=== PATIENT | male | born 1950 | race Hispanic/Latino ===

== ENCOUNTER 2019-02-26 11:04 | Emergency (ER) | payer BC, OTHER ==
--- NOTE | 2019-02-26 11:17 | Event Note ---
ED Screening Note Date of service: 02/26/19 Time: 11:13 ED Screening Note: This is a 68 y.o. M. that presents to the ER with chills, dehydration, and hematuria from PCP Dr. Gonzalez office. This initial assessment/diagnostic orders/clinical plan/treatment(s) is/are subject to change based on patients health status, clinical progression and re- assessment by fellow clinical providers in the ED. Further treatment and workup at subsequent clinical providers discretion. Patient/guardian urged not to elope from the ED as their condition may be serious if not clinically assessed and managed. Initial orders include: Labs
[2019-02-26 11:42] LABS: Basophils % (Auto) 0.3 % (0.0-1.8); Eosinophils % (Auto) 0.1 % (0.0-4.3); Hematocrit 47.8 % (35.5-45.6); Lymphocytes # (Auto) 1.3 K/mm3 (1.2-5.4); Lymphocytes % (Auto) 9.6 % (13.4-35.0); Mean Corpuscular HGB Conc 34 % (32-34); Mean Corpuscular Volume 95 fl (84-94); Monocytes # (Auto) 1.5 K/mm3 (0.0-0.8); Monocytes % (Auto) 11.2 % (0.0-7.3); Platelet Count 157 K/mm3 (140-440); Red Blood Count 5.04 M/mm3 (3.65-5.03); Red Cell Distribution Width 15.7 % (13.2-15.2)
[2019-02-26 11:47] VITALS: BP 144/81
[2019-02-26] MEDS ORDERED: NACL 0.9% 1000 ML 1,000 ML IV ONE ×2 (11:50→12:48)
--- NOTE | 2019-02-26 11:50 | Emergency Department Report ---
ED Male HPI - General Chief complaint: Urogenital-Male Stated complaint: DOCTOR REFERRAL Time Seen by Provider: 02/26/19 11:13 Source: patient Mode of arrival: Ambulatory Limitations: No Limitations - History of Present Illness Initial comments: Patient is 68 years old male with history of benign prostatic hypertrophy. Patient was sent from Dr. Bundy office for evaluation of urinary frequency, dysuria and hematuria. Patient stated that symptoms started 3 days ago. Patient denied any fever or chills. Patient also denying any flank pain. Pat ient also denied any nausea or vomiting. MD Complaint: dysuria -: days(s) - Related Data Home Medications Medication Instructions Recorded Confirmed Last Taken Dutasteride (Nf) [Avodart (Nf)] 1 cap PO DAILY 09/10/14 09/10/14 09/09/14 21:00 Esomeprazole Magnesium [NexIUM] 1 cap PO DAILY 09/10/14 09/10/14 09/09/14 21:00 Sertraline HCl 1 tab PO DAILY 09/10/14 09/10/14 09/09/14 21:00 Tamsulosin HCl 1 cap PO DAILY 09/10/14 09/10/14 09/09/14 21:00 Previous Rx's Medication Instructions Recorded Last Taken Type Ciprofloxacin HCl [Ciprofloxacin 500 mg PO Q12HR #20 tab 02/26/19 Unknown Rx TAB] Sulfamethoxazole/Trimethoprim 1 each PO BID #14 tablet 02/26/19 Unknown Rx [Bactrim DS TAB] Allergies Allergy/AdvReac Type Severity Reaction Status Date / Time shellfish derived Allergy Severe Swelling Verified 09/10/14 12:12 aspirin Allergy Swelling Verified 09/05/14 10:22 cephalexin [From Keflex] Allergy Swelling Verified 02/26/19 11:06 ibuprofen [From Advil] Allergy Swelling Verified 09/05/14 10:22 penicillin G Allergy Swelling Verified 09/05/14 10:23 ED Review of Systems ROS: Stated complaint: DOCTOR REFERRAL Other details as noted in HPI Comment: All other systems reviewed and negative Constitutional: denies: chills, fever Respiratory: denies: cough, shortness of breath, SOB with exertion Cardiovascular: denies: chest pain, palpitations Gastrointestinal: denies: abdominal pain, nausea, vomiting Genitourinary: dysuria, frequency, hematuria. denies: discharge, testicular pain, testicular mass Musculoskeletal: denies: back pain Neurological: denies: headache, weakness, numbness, paresthesias, confusion ED Past Medical Hx - Past Medical History Previous Medical History?: Yes Hx Hypertension: No Hx Heart Attack/AMI: (had negative stress test for abnormal EKG) Hx GERD: Yes - Surgical History Past Surgical History?: Yes Hx Pacemaker: No Hx Internal Defibrillator: No Additional Surgical History: hydrocele. left knee surgery- [facility] - Social History Smoking Status: Never Smoker Substance Use Type: None - Medications Home Medications: Home Medications Medication Instructions Recorded Confirmed Last Taken Type Dutasteride (Nf) [Avodart (Nf)] 1 cap PO DAILY 09/10/14 09/10/14 09/09/14 21:00 History Esomeprazole Magnesium [NexIUM] 1 cap PO DAILY 09/10/14 09/10/14 09/09/14 21:00 History Sertraline HCl 1 tab PO DAILY 09/10/14 09/10/14 09/09/14 21:00 History Tamsulosin HCl 1 cap PO DAILY 09/10/14 09/10/14 09/09/14 21:00 History Ciprofloxacin HCl [Ciprofloxacin 500 mg PO Q12HR #20 tab 02/26/19 Unknown Rx TAB] Sulfamethoxazole/Trimethoprim 1 each PO BID #14 tablet 02/26/19 Unknown Rx [Bactrim DS TAB] ED Physical Exam - General Limitations: No Limitations General appearance: alert, in no apparent distress - Head Head exam: Present: atraumatic, normocephalic, normal inspection - Eye Eye exam: Present: normal appearance - ENT ENT exam: Present: normal exam, normal orophraynx, mucous membranes moist - Neck Neck exam: Present: normal inspection, full ROM. Absent: tenderness, meningismus - Respiratory Respiratory exam: Present: normal lung sounds bilaterally - Cardiovascular Cardiovascular Exam: Present: regular rate, normal rhythm, normal heart sounds - GI/Abdominal GI/Abdominal exam: Present: soft, normal bowel sounds. Absent: distended, tenderness, guarding, rebound, rigid - Back Exam Back exam: Present: normal inspection. Absent: CVA tenderness (R), CVA tenderness (L) - Neurological Exam Neurological exam: Present: alert, oriented X3, CN II-XII intact, normal gait, reflexes normal - Skin Skin exam: Present: warm, intact, normal color ED Course Vital Signs 02/26/19 02/26/19 02/26/19 11:12 11:45 11:46 Temperature 98.4 F 98.5 F Pulse Rate 95 H 84 Respiratory 16 18 18 Rate Blood Pressure 136/80 Blood Pressure 144/81 [Left] O2 Sat by Pulse 98 98 98 Oximetry 02/26/19 14:22 Temperature Pulse Rate 89 Respiratory 18 Rate Blood Pressure Blood Pressure [Left] O2 Sat by Pulse 97 Oximetry ED Medical Decision Making - Lab Data Result diagrams: 02/26/19 11:23 02/26/19 11:23 - Medical Decision Making Patient is 68 years old male with history of benign prostatic hypertrophy. Patient was sent from Dr. Bundy office for evaluation of urinary frequency, dysuria and hematuria. Patient stated that symptoms started 3 days ago. Patient denied any fever or chills. Patient also denying any flank pain. Patient also denied any nausea or vomiting. Patient stated that he is a much better. I discussed the patient with Dr Bundy, he advised to start patient on Levaquin 500 mg IV and start patient on ciprofloxacin and Bactrim and patient to follow-up with him in his office in the next 2-3 days. I discussed with the patient the plan, patient agreed and also advised to return to the ER if symptoms are not improved. Critical care attestation.: If time is entered above; I have spent that time in minutes in the direct care of this critically ill patient, excluding procedure time. ED Disposition Clinical Impression: UTI (urinary tract infection) Disposition: -01 TO HOME OR SELFCARE Is pt being admited?: No Condition: Stable Instructions: Urinary Tract Infection in Men (ED) Prescriptions: Sulfamethoxazole/Trimethoprim [Bactrim DS TAB] 1 each PO BID #14 tablet Ciprofloxacin HCl [Ciprofloxacin TAB] 500 mg PO Q12HR #20 tab Referrals: CLAY ENCARNACION MD [Staff Physician] - 3-5 Days
[2019-02-26 12:01] LABS: Calcium 9.5 mg/dL (8.4-10.2)
[2019-02-26 12:08] LABS: Bilirubin,Urine NEG (Negative); Blood,Urine MOD (Negative); Color,Urine Yellow (Yellow); Mucus,Urine FEW /HPF
[2019-02-26] MEDS ORDERED: LEVAQUIN 500MG/100ML 500 MG/100 ML BAG IV ONE (12:48)
== END 2019-02-26 14:52 | disposition home or self-care (01) ==
LOC: ED 11:04
DX: N39.0 Urinary tract infection, site not specified (principal); Z91.018 Allergy to other foods; Z88.6 Allergy status to analgesic agent; Z88.0 Allergy status to penicillin; Z88.1 Allergy status to other antibiotic agents
CPT/HCPCS: 36415; 80048; 81001; 82140; 85025; J1956; J7030; 96365